=== PATIENT | female | born 1985 | race Hispanic/Latino ===

== ENCOUNTER 2017-09-28 06:04 | Inpatient (IN) | payer BC ==
[2017-09-21 13:22] VITALS: BMI 26.6
[2017-09-28] MEDS ORDERED: Lactated Ringer's 1,000 ML IV ONE ×4 (07:00→10:25)
[2017-09-28 07:12] LABS: BASO % 0.7 % (0.0-2.0); EOS # 0.1 K/uL (0.0-0.7); EOS % 0.9 % (0.0-4.0); HEMOGLOBIN 12.6 g/dL (12.0-16.0); LYMPH # 1.5 K/uL (1.0-4.3); LYMPH % 24.7 % (20.0-40.0); MEAN CELL VOLUME 80.6 fl (81.0-99.0); MEAN CORPUSCULAR HEMOGLOBIN 26.2 pg (27.0-31.0); MEAN CORPUSCULAR HGB CONC 32.5 g/dL (33.0-37.0); MEAN PLATELET VOLUME 8.5 fl (7.2-11.7); MONO # 0.5 K/uL (0.0-0.8); MONO % 8.4 % (0.0-10.0); NEUT # 3.9 K/uL (1.8-7.0); NEUT % 65.3 % (50.0-75.0); RBC 4.82 Mil/uL (3.80-5.20); RED CELL DISTRIBUTION WIDTH 14.6 % (11.5-14.5); WHITE BLOOD COUNT 5.9 K/uL (4.8-10.8)
[2017-09-28] MEDS: Bupivacaine HCl 0.5% PF (30 ml) Inj ONE ×2 (07:21→08:15)
[2017-09-28] MEDS ORDERED: ePHEDrine 50 mg/ml Inj ONE (07:23)
[2017-09-28] MEDS ORDERED: Propofol 10 mg/ml Inj (20 ML) ONE (07:23)
[2017-09-28] MEDS ORDERED: Midazolam 2 MG/2 ML VIAL ONE (07:24)
[2017-09-28] MEDS ORDERED: Rocuronium 10 mg/ml (5 ml) ONE (07:25)
[2017-09-28] MEDS ORDERED: Succinylcholine 200 mg/10 ml Inj IV ONE (07:25)
[2017-09-28] MEDS ORDERED: Lidocaine 4% (Laryng-O-Jet) Kit MM ONE (07:26)
[2017-09-28] MEDS ORDERED: Phenylephrine 10 mg/ml Inj ONE (07:28)
[2017-09-28] MEDS ORDERED: Dexamethasone 4 mg/1 ml ONE (08:21)
[2017-09-28] MEDS ORDERED: Desflurane Inhalation Anesthetic Liq (240 ml) ONE (09:28)
[2017-09-28] MEDS ORDERED: Neostigmine 1:1000 (1 mg/ml) Inj ONE (09:47)
[2017-09-28] MEDS ORDERED: Oxycodone/Acetaminophen 5/325 mg Tab PO PRN (10:50)
[2017-09-28] MEDS ORDERED: Lactated Ringer's 1,000 ML IV PRN (10:54)
[2017-09-28] MEDS ORDERED: Lactated Ringer's 1,000 ML IV SCH ×2 (11:00)
--- NOTE | 2017-09-28 11:38 | PCM.OP ---
Operative Report - Operative Report Date of Surgery/Procedure: 09/28/17 Time of Surgery/Procedure: 08:00 Surgeon: Dr. Epi Gale Transitional Care Manager: Dr. Everett Jamil Anesthesia/Sedation: general/Dr. Lane Pre-Operative Diagnosis: abdominal pain and endometriosis Post-Operative Diagnosis: same Indication for Surgery: rectal and appendiceral involvremert with endometriosis Operative Findings: as above Procedure/Operation Description: 1-Complex excison perirectal endometriosis above and below the peritneal reflection. 2-Appendectomy. Breif History: This 36 year old woman was brought to the operating room by Dr. Jamil when he norted significant disease iinvolveimng the intestines. Intraoperative general surgery consultation was obtained. Description of the Procedure: The patient had already been taken to the operatong room by Dr. Jamil (separate dictation) . After taking control of the robotic console the area invovled included the rectovaginal space extending below the peritoneal reflection. With blunt and sharp dissection with the aid of electrocautery the lesions were excised en- bloc and marked separately for pathology. The area in question swas examines and hemostasis was deemed adeqaute. The other smaller lesions were excised in a somilar manner. Our attention turned to the appendix and with anterior traction the mesnetery was dessicted with monopolar energy to the base of the appendix. Three loop 3-0 vicryl were used to ligate the appendix and it ws then transected , removed and sent to pathology after beng marked separately. Hemostasis was deemed adeqaute and all counts were correct. The operation was then turned back over to Dr. Jamil (separate dictation Dr. Jamil). Estimated Blood Loss: 10 cc Complications: none Discharge & Condition: stable
[2017-09-28] MEDS: HYDROmorphone 0.5 mg/0.5 ml ISec IVP PRN ×2 (11:52→12:05)
[2017-09-28 20:46] VITALS: BP 138/74; PULSE 86; RESP 20; TEMP 98.9; O2SAT 100
--- NOTE | 2017-10-02 12:16 | OP ---
PROCEDURE DATE: 09/28/17 SURGEON: Everett Jamil MD SUPERVISOR DRY CLEANING: Epi Gale MD ANESTHESIOLOGIST: Yasmin Lane MD ANESTHETIC: General Endo PREOPERATIVE DIAGNOSES: 1. Incapacitating pelvic pain. 2. Incapacitating abdominal pain. 3. Abnormal uterine bleeding. 4. History of pelvic endometriosis. 5. History of previous failed medical surgical therapy. 6. History of severe endometriosis and pelvic adhesions. 7. Gastrointestinal and genitourinary symptoms. 8. Rule out interstitial cystitis. 9. Bilateral ovarian endometriomas POSTOPERATIVE DIAGNOSES: 1. Incapacitating pelvic pain. 2. Incapacitating abdominal pain. 3. Abnormal uterine bleeding. 4. History of pelvic endometriosis. 5. History of previous failed medical surgical therapy. 6. History of severe endometriosis and pelvic adhesions. 7. Gastrointestinal and genitourinary symptoms. 8. Bilateral ovarian endometriomas 9. Appendiceal endometriosis 10. Severe pelvic endometriosis. 11. Ovarian adhesions. 12. Bowel adhesions. 13. Mild bilateral hydroureters. OPERATION PERFORMED: 1. Examination under anesthesia. 2. Video_assisted hysteroscopy. 3. Robotic da Pascual laparoscopy. 4. Bilateral Ovarian cystectomy 5. Enterolysis. 6. Bilateral ureterolysis. 7. Bilateral salpingo_ovariolytis. 8. Multiple peritoneal biopsies and excision of endometriosis. 9. Treatment of endometriosis. 10. Shaving of endometriosis of the bowel. 11. Cystoscopy. 12. Bilateral ureteral catheterization and injection of IC-Green dye. 13. Excision of anterior bladder serosa endometriosis. 14: Bilateral temporary ovarian suspension Dr. Gale from General Surgery was consulted to perform complex excision perirectal endometriosis above and below the peritneal reflection. 2. Appendectomy procedure and he will dictate that separately. COMPLICATIONS: None. SAMPLES: Sent to pathology left pelvic sidewall right pelvic sidewall cul de sac left and right ovarian endometrioma left and right anterior bladder serosa anterior rectal appendix DRAINS: none ESTIMATED BLOOD LOSS: Minimal. FINDINGS: Genitalia: normal, external genitalia, cervix normal without lesions or polyps. Hysteroscopy showed evidence of a normal uterine cavity. Cystoscopy was performed to rule out endometriosis of bladder mucosa and also interstitial cystitis, also injury. The bladder was normal with no evidence of stone, trigonitis or cystitis. Positive jet flow visualized in both ureters. Laparoscopy was normal, gallbladder was normal, liver edges appeared to be normal. Ascending colon and transverse were normal. The appendix appeared to be abnormal with both fibrosis and thickening and it had an endometriotic implant. There was evidence of severe adhesions, fibrosis and endometriosis of the rectovaginal septum and attachment of the bowel to the posterior aspect of the uterus and to both the right and left adnexa. Both ovaries were severely attached to the posterior aspect of the ureters with endometriosis and adhesions. Fallopian tubes appeared to have some inflammatory changes of adhesions, but overall appeared to bepatent . Both ovaries appeared to be involved with scar. There was also evidence of endometriosis of the rectovaginal septum in right and left perirectal areas and fibrosis of both ureters, posterior cul_de_sac and anterior cul_de_sac. There was also evidence of severe retroperitoneal fibrosis in this area. There was also evidence of mild bilateral hydroureters. CONSENT: The patient had been thoroughly evaluated and counseled regarding pros and cons of the procedure, the reasonable alternative, and the possible complications. She understood and accepted the risks involved. Appropriate literature was provided to the patient. The patient was in understanding that given her history and presurgical exam, she knows that she was a high risk and average patient. She accepted all the risks involved and all the questions had been answered to her satisfaction. DESCRIPTION OF PROCEDURE: Initiation of the case: After adequate anesthesia was obtained, the patient was placed in the dorsal lithotomy position with extreme care of placement of the patient without hyperextension or hyperflexing the hips. At this point, the patient was prepped and draped, the surgeon was gowned and gloved. A time- out was taken according to the hospital procedure and the procedure was started. At this point, we performed the cystoscopy and bilateral ureteral catheterization. At this point we performed cystoscopy: A cystoscope was inserted into the bladder, under direct visualization and the bladder was visualized. The bladder was free of lesions, tumors. There was no evidence of interstitial cystitis, and there was only a mild amount of trigonitis. At this point, both ureters were identified and appeared to be in normal anatomical position. At this point, utilizing an open-ended 5-Italian catheter, the left ureter was catheterized all the way to the distal ureter, and a 5 mL of IC-Green were injected into the distal ureter. Similarly, on the contralateral ureter, the ureter was catheterized all the way to the distal ureter, and a 5 mL of IC-Green were injected into the distal ureter. At this point, the stents were removed, and the hysteroscope was removed and a 16- Italian Art was placed into the bladder. At this point, we proceeded with a hysteroscopy: A speculum was placed in the vagina, and the anterior lip of the cervix was grasped. The cervix was dilated and a hysteroscope was inserted into the cavity. The cavity appeared to be of normal size, At this point, we proceeded with placement of trocars and docking of the Da Pascual Xi robot The surgeons were re-gowned and re-gloved, and an open laparoscopy was performed by making an incision below the umbilicus, and the fascia was incised , and the peritoneum was entered in the blunt fashion. The cannula was inserted and the abdomen was insufflated, and under direct visualization 3 additional ports were inserted, left upper quadrant, left mid quadrant and right upper quadrant. At this point, the da Pascual Xi robot was brought into the field and docked, and the instruments were inserted under direct visualization. With extreme care not to injure the bowel or any other area. As per the dictation, the upper abdomen appeared to be normal with no evidence of any lesions. The pelvis had the findings described above, which included significant adhesions, fibrosis of the posterior cul-de-sac, significant endometriosis with deep endometriosis nodules. Both ovary adherent to both the ovarian fossas and the posterior aspect of the uterus with significant inflammatory changes. At this point, we proceeded with the left ureterolysis. The ureter appeared to dilated and it was clearly identified utilizing fluorescent technology. An incision was made on the peritoneum at the top of the pelvic brim, and incision was then carried down all the way opening the peritoneum and all the way down from the pelvic brim all the way down to the ovarian fossa extending the incision below the ovary. It was a progressive dissection where the ureter was progressively lateralized and the peritoneum medialized, thus freeing the ureter all the way down to the crossing of the uterine vessels. After this was done and the ureter was freed and lateralized and a large area of peritoneum, which had been opened up was excised and sent to pathology. At this point, after ureter had been identified, we were able to elevate the ovary and dissect it from the pelvic side wall in the ovarian fossa At this point, we proceeded with the left ovariolysis. The ovary was gently dissected and elevated off the ovarian fossa and area of fibrosis of endometriosis were exposed. At this point we proceeded with the left ovarian cystectomy The endometrioma cyst wall was identified and gently peeled off the ovary with extreme care not to damage healthy ovarian tissue. At this point we proceeded with the left ovarian suspension. the ovary was elevated and pexed to the pelvic sidewall utilizing 2.0 suture.This was reversed at the end of the procedure. At this point, we proceeded with the right ureterolysis. The ureter was identified and again utilizing florescent technology, the retroperitoneal space was entered and a full dissection was performed entering the retroperitoneal space and dissecting the ureter, removing the ureter laterally and the peritoneum medially. A full dissection was performed all the way down to the ovarian fossa, on the crossing of the uterine arteries. A large area of peritoneum containing endometriosis was also dissected and sent to Pathology. At this point, we proceeded with a right ovariolysis. The ovary was progressively elevated, areas of deep endometriosis and superficial endometriosis were dissected out and the ovary was finally elevated. At this point we proceeded with the right ovarian cystectomy. The endometrioma cyst wall was identified and gently peeled off the ovary with extreme care not to damage healthy ovarian tissue. At this point we proceeded with the left ovarian suspension. The ovary and pexed to the sidewall utilizing 2.0 suture. This was reversed at the end of the procedure. At this point, we proceeded with a treatment of endometriosis and excision of endometriosis. On the left hand side, a large area of peritoneum, wcontaining endometriosis was excised in the ovarian fossa with the upper margin of the excision at the utero_ovarian ligament all the way down to the uterosacral ligament. Large areas of fibrosis were identified in posterior cul-de-sac and the rectovaginal space was affected with endometriosis and severe fibrosis. The rectovaginal area was then dissected and the space was opened, and we were able to dissect the rectum away from the posterior aspect of the cervix. Additional areas of endometriosis were dissected from the posterior aspect of the Uterus. At this point, we proceeded with excision of the endometriosis on the right hand side where similarly in a full excision of endometriosis was performed by performing incision from starting at the right utero_ovarian ligament all the way down to the right uterosacral ligament. At this point, Dr. Gale from General Surgery was called in and he performed complex excision perirectal endometriosis above and below the peritneal reflection procedure, which she will dictate separately. At this point, it was checked for hemostasis and appeared to be excellent. All the endometriosis had been excised. At this point, we performed the destruction of inflamed peritoneum on the uterine surface , utilizing the J_plasma device. There were inflammatory areas in the posterior aspect of the uterus, which were not endometriotic, but they were purely inflammatory. Once this was done, it was checked for hemostasis and appeared to be excellent. The console was handed to Dr. Gale, who performed the appendectomy and he will dictate that separately. After this was done, it was checked for hemostasis and appeared to be excellent. The pelvis was irrigated. The da Pascual Xi robot was removed. The abdomen desufflated. The instruments were removed. The incisions were closed in layers with 0 PDS for the fascia and 4-0 Monocryl for the skin. The patient was awakened up and taken to recovery room in excellent condition. Everett Jamil MD [facility]ITALPatty
== END 2017-09-28 21:30 | disposition home or self-care (01) | DRG 742 ==
LOC: H.OPSURG 06:04 → H.PEDS 10:50
PROVIDERS: ADMIT Obstetrics & Gynecology Reproductive Endocrinology; ATTEND Obstetrics & Gynecology Reproductive Endocrinology
PROC: 0DTJ4ZZ Resection of Appendix, Percutaneous Endoscopic Approach (ICD-10-PCS; 2017-09-28)
PROC: 0TJB8ZZ Inspection of Bladder, Via Natural or Artificial Opening Endoscopic (ICD-10-PCS; 2017-09-28)
PROC: 8E0W4CZ Robotic Assisted Procedure of Trunk Region, Percutaneous Endoscopic Approach (ICD-10-PCS; 2017-09-28)
PROC: 0U5B4ZZ Destruction of Endometrium, Percutaneous Endoscopic Approach (ICD-10-PCS; principal; 2017-09-28 07:45)
PROC: 0UB04ZZ Excision of Right Ovary, Percutaneous Endoscopic Approach (ICD-10-PCS; 2017-09-28 07:45)
PROC: 0TN74ZZ Release Left Ureter, Percutaneous Endoscopic Approach (ICD-10-PCS; 2017-09-28 07:45)
PROC: 0TN64ZZ Release Right Ureter, Percutaneous Endoscopic Approach (ICD-10-PCS; 2017-09-28 07:45)
DX: N80.1 Endometriosis of ovary (principal); N13.4 Hydroureter; N80.3 Endometriosis of pelvic peritoneum; N80.4 Endometriosis of rectovaginal septum and vagina; N80.5 Endometriosis of intestine; N73.6 Female pelvic peritoneal adhesions (postinfective); N93.9 Abnormal uterine and vaginal bleeding, unspecified